=== PATIENT | female | born 1990 ===

== ENCOUNTER 2017-01-04 06:38 | Inpatient (IN) | payer BC ==
[2017-01-04] VITALS (60 sets, daily range): BP systolic 95–124; BP diastolic 50–72; PULSE 67–106; TEMP 97.7–98.7
[~2017-01-04] VITALS: Ht 167.6 cm; Wt 70.0 kg
[~2017-01-04 06:38] MED LIST: MOTRIN 600600 MG/TAB PO; PERCOCET 325 MG1 TA2 PO; PRENATA1 CTB PO
[2017-01-04] MEDS ORDERED: IRON18 MG1 (07:11)
[2017-01-04 08:06] LABS: BASO % 0.4 % (0.0-2.0); EOS % 0.4 % (0-4.0); GRAN # 7.1 (1.4-6.5); GRAN % 64.9 % (42.2-75.2); LYMPH # 2.7 (1.2-3.4); LYMPH % 24.4 % (20.0-51.0); MEAN CELL VOLUME 92 fl (80.0-100.0); MEAN CORPUSCULAR HGB CONC 34 g/dl (33.0-37.0); MEAN PLATELET VOLUME 10.4 fl (7.4-10.4); MONO % 9.1 % (1.7-9.3); PLATELET COUNT 178 K/mm3 (130-400); RED BLOOD COUNT 3.31 M/mm3 (4.10-5.30); REDCELL DISTRIBUTION WIDTH-CV 13.2 % (11.5-14.5); WHITE BLOOD COUNT 10.9 K/mm3 (4.8-10.8)
[2017-01-04 08:10] LABS: HEMATOCRIT 30.3 % (37.0-47.0); HEMOGLOBIN 10.4 g/dl (12.5-16.0); MEAN CORPUSCULAR HEMOGLOBIN 31 pg (27.0-31.0)
[2017-01-05 03:49] VITALS: BP 99/47; PULSE 68; TEMP 97.4
[2017-01-05 08:06] VITALS: BP 100/61; PULSE 76; TEMP 97.5
[2017-01-05] MEDS ORDERED: IBU600 MG PO (09:08)
[2017-01-05 16:24] VITALS: BP 114/64; PULSE 78; TEMP 98
== END 2017-01-05 20:20 | disposition home or self-care (01) | DRG 767 ==
LOC: LDR 06:38 → OB 06:38 → LDR 14:36 → OB 21:15
PROVIDERS: Obstetrics & Gynecology
PROC: 10E0XZZ Delivery of Products of Conception, External Approach (ICD-10-PCS; principal; 2017-01-04)
PROC: 10D17ZZ Extraction of Products of Conception, Retained, Via Natural or Artificial Opening (ICD-10-PCS; 2017-01-04)
PROC: 3E033VJ Introduction of Other Hormone into Peripheral Vein, Percutaneous Approach (ICD-10-PCS; 2017-01-04)
PROC: 0HQ9XZZ Repair Perineum Skin, External Approach (ICD-10-PCS; 2017-01-04)
DX: O48.0 Post-term pregnancy (principal); O73.1 Retained portions of placenta and membranes, without hemorrhage; O70.0 First degree perineal laceration during delivery; O99.02 Anemia complicating childbirth; D64.9 Anemia, unspecified; Z3A.40 40 weeks gestation of pregnancy; Z37.0 Single live birth
CPT/HCPCS: J2405; J2590; J7120